=== PATIENT | male | born 1995 | race African-American/Black ===

== ENCOUNTER → 2021-07-01 | Outpatient (CLI) | payer OTHER | LOC: RAD 14:01 | PROVIDERS: ATTEND Internal Medicine | DX: R06.00 Dyspnea, unspecified (principal); R06.02 Shortness of breath ==

== ENCOUNTER → 2021-07-12 | Outpatient (CLI) | payer OTHER | LOC: CAT 13:05 | PROVIDERS: ATTEND Internal Medicine | DX: R06.00 Dyspnea, unspecified (principal); N62 Hypertrophy of breast ==